=== PATIENT | male | born 1980 | race Caucasian/White ===

== ENCOUNTER 2016-09-28 12:16 | Outpatient (CLI) | payer MEDICAID | END 2016-09-28 12:17 | disposition home or self-care (01) | DX: M25.511 Pain in right shoulder (principal) ==

== ENCOUNTER 2016-10-15 16:50 | Emergency (ER) | payer MEDICAID ==
[2016-10-15] MEDS ORDERED: ACETAMINOPHEN 325 MG TABLET PO STA (18:18)
[2016-10-15] MEDS ORDERED: IBUPROFEN 400 MG TABLET PO STA (18:18)
[2016-10-15] MEDS ORDERED: ACETAMINOPHEN 325 MG TABLET PO ONE (18:22)
[2016-10-15] MEDS ORDERED: IBUPROFEN 400 MG TABLET PO ONE (18:22)
== END 2016-10-15 19:32 | disposition home or self-care (01) ==
DX: S62.316A Displaced fracture of base of fifth metacarpal bone, right hand, initial encounter for closed fracture (principal); W01.0XXA Fall on same level from slipping, tripping and stumbling without subsequent striking against object, initial encounter; Y92.017 Garden or yard in single-family (private) house as the place of occurrence of the external cause; J45.909 Unspecified asthma, uncomplicated; F17.200 Nicotine dependence, unspecified, uncomplicated
CPT/HCPCS: 29125; 73110; 73130; 99283; A9270

== ENCOUNTER 2017-04-03 20:01 | Emergency (ER) | payer MEDICAID ==
[2017-04-03 20:15] VITALS: BP 144/92
--- NOTE | 2017-04-03 20:55 | XRAY Preliminary Report ---
Exam: XR Ribs w/PA Chest LT IMPRESSION: Left ninth rib fracture. No pneumothorax. [facility] SITE ID: [id number]
--- NOTE | 2017-04-03 21:14 | XRAY Report ---
EXAM: LEFT RIB RADIOGRAPHY EXAM DATE: 04/03/2017 08:41 PM. CLINICAL HISTORY: Left lower lateral chest wall and rib pain since playing tackle football 3 days ago . COMPARISON: None. TECHNIQUE: 1 view of the chest and 4 views of the ribs. FINDINGS: Bones: A marker was placed in the area of concern. This corresponds to the anterior lateral aspects o f the left ninth and tenth ribs. There is an acute minimally displaced fracture of the anterior most aspect left ninth rib. Scoliosis. Lungs: No focal opacities. No pneumothorax. No pleural effusions. Mediastinum: Heart and mediastinal contours are unremarkable. Other: None. IMPRESSION: Left ninth rib fracture. No pneumothorax. [facility] Referring Provider Line: [phone] SITE ID: [id number]
[2017-04-03] MEDS: oxyCOD/ACETAMIN 5 MG/325 MG TABLET PO STA (21:54)
[2017-04-03] MEDS ORDERED: oxyCOD/ACETAMIN 5 MG/325 MG TABLET PO ONE (21:57)
--- NOTE | 2017-04-03 21:57 | ED Physician Documentation ---
PD HPI TRUNK INJURY - Stated complaint Stated Complaint: RIB PX,LIP LAC - Chief complaint Chief Complaint: General - History obtained from History obtained from: Patient, Family - History of Present Illness Location: Left chest Type of injury: Fall, Blunt / blow Timing - onset: How many days ago (4) Timing - details: Abrupt onset Quality: Pain Improved by: Immobilization Worsened by: Moving, Palpating Associated symtptoms: No: Weakness, Numbness Similar symptoms before: Has not had sx before Recently seen: Not recently seen - Additional information Additional information: patient is a 36 year old male with no significant past medical history who is presenting to the emergency department for left rib pain and lip pain and swelling. Patient states that he was playing football three days ago and ended up diving for a catch landing on his ribs and also he got elbowed in his mouth splitting his lower lip. Patient states that the cut is starting to taste funny and isn't healing so he came in for evaluation. Review of Systems Constitutional: denies: Fever, Chills Eyes: denies: Decreased vision, Photophobia Ears: denies: Ear pain, Drainage/discharge Nose: denies: Epistaxis Throat: reports: Oral lesions / sores Cardiac: reports: Chest pain / pressure Respiratory: reports: Dyspnea. denies: Cough, Wheezing GI: denies: Nausea, Vomiting : reports: Reviewed and negative Skin: reports: Laceration (s) Musculoskeletal: denies: Neck pain, Back pain, Extremity pain Neurologic: reports: Reviewed and negative Psychiatric: reports: Reviewed and negative Immunocompromised: reports: Immunocompromised PD PAST MEDICAL HISTORY - Past Medical History Past Medical History: Yes Respiratory: Asthma - Past Surgical History Past Surgical History: Yes - Present Medications Home Medications: Ambulatory Orders Medication Instructions Recorded Confirmed Albuterol Sulfate [Proair Hfa 1 10/15/16 Inhaler] Chlorhexidine Gluconate 15 ml MM Q6H #473 ml 04/03/17 Oxycodone HCl/Acetaminophen 1 - 2 each PO DAILY #10 tablet 04/03/17 [Percocet 5-325 mg Tablet] - Allergies Allergies/Adverse Reactions: Allergies Allergy/AdvReac Type Severity Reaction Status Date / Time erythromycin base AdvReac Nausea Verified 04/03/17 21:23 - Social History Does the pt smoke?: Yes Smoking Status: Current every day smoker Does the pt drink ETOH?: No Does the pt have substance abuse?: No - Immunizations Immunizations are current?: Yes PD ED PE NORMAL - Vitals Vital signs reviewed: Yes - General General: Alert and oriented X 3, No acute distress - HEENT HEENT: Atraumatic, PERRL, Pharynx benign - Neck Neck: Supple, no meningeal sign, No bony TTP - Cardiac Cardiac: RRR, No murmur - Respiratory Respiratory: No respiratory distress - Abdomen Abdomen: Soft, Non tender, Non distended - Derm Derm: Normal color, Warm and dry, No rash - Extremities Extremities: No deformity, No tenderness to palpate, No edema - Neuro Neuro: Alert and oriented X 3, No motor deficit, No sensory deficit - Psych Psych: Normal mood, Normal affect PD ED PE EXPANDED - HEENT HEENT: Lip laceration (laceration through lower lip with granulation tissue) - Cardiac Cardiac: Chest wall TTP (tenderness to palpation of left axillary region, no step offs) Results - Vitals Vitals: Vital Signs - 24 hr 04/03/17 20:11 Temperature 35.3 C L Heart Rate 88 Respiratory 20 Rate Blood Pressure 144/92 H O2 Saturation 100 Oxygen O2 Source Room air - Rads (name of study) chest x-ray Radiology: Final report received (non displaced 9th rib fracture) PD MEDICAL DECISION MAKING - ED course Complexity details: reviewed old records, reviewed results, re-evaluated patient , considered differential, d/w patient, d/w family ED course: Patient was seen and examined at bedside. imaging had already been ordered. patient had been treated with percocet for pain. imaging showed a rib fracture. It had been well over 72 hours since the patient's laceration and no suturing would be appropriate at this time. Patient and family were made aware of the findings and was stable for discharge with outpatient follow up. Departure - Departure Disposition: 01 Home, Self Care Clinical Impression: Left rib fracture Condition: Good Instructions: ED Fx Rib Follow-Up: Brigitte Del Rio ARNP [Primary Care Provider] - As Needed Prescriptions: Chlorhexidine Gluconate 15 ml MM Q6H #473 ml Oxycodone HCl/Acetaminophen [Percocet 5-325 mg Tablet] 1 - 2 each PO DAILY #10 tablet Comments: Your symptoms today are being caused by a rib fracture. You should take motrin or tylenol as needed for pain, and percocet for breakthrough pain at night. For your lip you should use the oral antibiotic rinse 4 times daily. You should follow up with your pmd if your symptoms don't improve. You should return to the emergency department for fevers, chills, new, worsening or uncontrollable symptoms.
== END 2017-04-03 22:06 | disposition home or self-care (01) ==
LOC: ED 20:01
DX: S22.32XA Fracture of one rib, left side, initial encounter for closed fracture (principal); S01.511A Laceration without foreign body of lip, initial encounter; W22.8XXA Striking against or struck by other objects, initial encounter; W18.30XA Fall on same level, unspecified, initial encounter; Y93.61 Activity, american tackle football; F17.200 Nicotine dependence, unspecified, uncomplicated
CPT/HCPCS: 99283; 99284